=== PATIENT | male | born 1965 | race Caucasian/White ===

== ENCOUNTER 2017-01-10 06:07 | Inpatient (IN) ==
[2017-01-10] MEDS ORDERED: *HR* HYDROmorphone (PF) 1 MG/ML SYRINGE IVP ONE ×3 (06:24→10:11)
--- NOTE | 2017-01-10 06:27 | Emergency Department Note ---
Disposition Clinical Impression: Abdominal pain Qualifiers: Abdominal location: unspecified location Qualified Code(s): R10.9 - Unspecified abdominal pain Crohn disease Qualifiers: Gastrointestinal tract location: small intestine Digestive disease complication type: with fistula Qualified Code(s): K50.013 - Crohn's disease of small intestine with fistula Disposition: Admitted As Inpatient Condition: Good Time of Disposition: 11:17 Abdominal Pain HPI - General Chief Complaint: ED Abdominal Pain Stated Complaint: Crohns flare Time Seen by Provider: 01/10/17 06:12 Source: patient Nursing Notes Reviewed: Yes Vital Signs Reviewed: Yes - History of Present Illness HPI Narrative: Patient is a 51-year-old white male nonsmoker c/o abdominal pain 3 days. He compares it to his previous episodes of Crohn's disease which he has had for 16 years. He is followed by Dr. Deshpande. He indicates the location of the pain, by passing his hand over his right and left lower quadrant and his periumbilical area. He describes it as crampy, and gradually worsening. Nothing has made his his pain better. He states the pain does not migrate or radiate. His last bowel movement was yesterday which she describes as being normal. He has been able to food, but does mention he has not been eating much. He mentions he is taking Humira and azathioprine. He denies any nausea, vomiting, bloody stools, chest pain, shortness of breath, fevers, chills, weight loss. Pt Subjective Complaint: abdominal pain Onset (ago): day(s) (3) Consistency: Worsening Location: diffuse (Lower quadrant) Pain Scale: 9 Quality: cramping Migration to: no migration Improves with: nothing Worsens with: nothing Context: history of similar episodes (h/o crohns disease) Associated symptoms: Denies: nausea, vomiting, diarrhea, fever, chills, constipation, dysuria, hematemesis, hematuria, anorexia - Related Data Home Medications Medication Instructions Recorded Confirmed Adalimumab [Humira] 40 mg SQ Q2W 07/13/16 10/28/16 Azathioprine [Imuran] 150 mg PO DAILY 07/13/16 10/28/16 L. Acidophilus/Pectin, [place] 1 cap PO DAILY 01/10/17 01/10/17 [Acidophilus Probiotic Capsule] Multivitamin [Multi-Day Vitamins] 1 tab PO DAILY 01/10/17 01/10/17 Allergies Allergy/AdvReac Type Severity Reaction Status Date / Time infliximab [From Remicade] AdvReac Shakiness Verified 10/28/16 10:05 All systems ED: reviewed and negative except as stated. Constitutional: Denies: fever, chills ENT ED: Denies: ear pain Cardiovascular: Denies: chest pain Respiratory: Denies: dyspnea Gastrointestinal: Reports: as per HPI. Denies: diarrhea, constipation Genitourinary: Denies: dysuria Musculoskeletal: Denies: back pain Integumentary: Denies: rash Neurological: Denies: weakness Hematological/Lymphatic: Denies: easy bleeding Abdominal Pain PMH - Past Medical History Medical history: Reports: other (Crohns Disease) Male Surgical History: Reports: herniorrhaphy Psychiatric history: Reports: no psych history - Social History Smoking status: Never smoker Alcohol use: Reports: rarely Drug use: Reports: none Physical Exam - General Limitations: no limitations General appearance: alert, in no apparent distress - Head Head exam: normocephalic - Eye Eye exam: Present: EOMI. Absent: conjunctival injection - ENT ENT exam: mucous membranes moist - Neck Neck exam: Present: full ROM - Chest Chest inspection: Present: symmetric chest wall rise - Respiratory Respiratory exam: Present: normal lung sounds bilaterally. Absent: respiratory distress - Cardiovascular Cardiovascular exam: Present: regular rate, normal rhythm - Abdominal Exam Abdominal exam: Present: soft, tenderness, normal bowel sounds. Absent: distention, guarding, rebound - Extremities Exam Extremities exam: Present: normal inspection, full ROM, normal capillary refill - Back Exam Back exam: Present: full ROM - Neurological Exam Neurological exam: Present: alert, oriented X3 - Psychiatric Psychiatric exam: Present: normal affect, normal mood - Skin Skin exam: Present: warm, dry, intact, normal color. Absent: rash Course Course Narrative: Patient is a 51-year-old white male nonsmoker with known 16year h/o of crohns' disease who ambulates to exam room from home with complaints of abdominal pain 3 days. He is followed by Dr. Deshpande. He has a h/o of fistulas, denies any h/o of surgeries for his crohns. He is taking Humira and azathioprine. No recent steroid or abx use. Had an 8 day hospitalization for his crohns approx 4 years ago. Past surgical history includes an umbilical hernia repair, and some knee surgeries. No gross focal neurological deficits. Workup initiated. Analgesics ordered. Fluids ordered. - Reevaluation(s) Reevaluation #1: Patient received pain medication, and fluids running. He states his pain has improved after Dilaudid. Discussed patient with Dr. Laboy, who agreed for CT scan of abdomen and pelvis with IV and oral contrast. He also recommended sedimentation rate, CRP, stool culture, C. difficile. Plan will be to contact Dr. Deshpande after workup. Time: 07:10 Reevaluation #2: Pt pain is returning, and is now accompanied with N/V. Will order dilaudid and zofran. Vitals stable. GI labs unremarkable, SED rate 28. CT still pending. Time: 08:11 Reevaluation #3: CT report still pending. Pt pain/nausea returning. Meds ordered. Time: 10:12 Additional Reevaluation(s): Ct shows inflammatory changes consistent with patient's Crohn disease at distal ileum extending into the ileocecal valve. Mild fluid-filled distention of loops proximal and wall thickening, possible underlying ileus. Fistula tracts suspected, no abscess formation. Vital stable. Pain and nausea controlled with IV meds. @10:58 Pt discussed with and accepted by hospitalist Dr. Fisher. - Consultations Consultation #1: On-call trades helper was paged, and I discussed patient with Dr. Deshpande, who advised for admission to hospitalist and he also advised Solu-Medrol 125. Time: 10:46 Vital Signs Temperature 97.7 F 01/10/17 06:10 Pulse Rate 92 01/10/17 06:10 Respiratory Rate 16 01/10/17 06:10 Blood Pressure 135/88 01/10/17 06:10 O2 Sat by Pulse Oximetry 96 01/10/17 06:10 Temperature 97.7 F 01/10/17 06:10 Pulse Rate 86 01/10/17 10:22 Respiratory Rate 16 01/10/17 10:22 Blood Pressure 139/89 01/10/17 10:22 O2 Sat by Pulse Oximetry 94 01/10/17 10:22 Oxygen Delivery Oxygen Delivery Nasal Cannula Abdominal Pain - MDM Narrative Medical decision making narrative: Abdomen/Pelvis CT 01/10/17 09:30 IMPRESSION: Inflammatory changes involving the mid to distal ileum extending to the ileocecal valve compatible with inflammatory changes from patient's known Crohn's disease. Several fistulous tracts are again suspected in the lower abdomen, pelvis involving enteric-enteric and enteric colonic pathways. Mild fluid-filled distention of loops of small bowel noted proximal to the wall thickening favored to represent underlying ileus. Incidental note of hepatic steatosis. No evidence of abscess formation at this time. D/ / 01/10/2017 10:49:47 Valente Danielle MD / bridger Interpreting Provider: Valente Danielle MD All Lab Results (24 Hours) 01/10/17 01/10/17 01/10/17 Range/Units 06:33 06:55 06:55 WBC 8.2 (4.3-11.1) K/mcL RBC 5.04 (4.19-5.50) M/mcL Hgb 14.7 (12.9-16.9) g/dL Hct 44.4 (37.5-50.1) % MCV 88.1 (83.0-100.0) fL MCH 29.2 (28.0-33.3) pg MCHC 33.1 (31.6-35.5) g/dL RDW 13.4 (11.5-14.5) % Plt Count 191 (140-400) K/mcL MPV 10.8 (9.4-12.4) fL Immature Gran % 0.5 (0-4) % Seg Neutrophils % 87.8 % Lymphocytes % 5.2 % Monocytes % 6.1 % Eosinophils % 0.2 % Basophils % 0.2 % Neutrophils # 7.2 (1.6-8.9) K/mcL Lymphocytes # 0.4 L (0.6-4.6) K/mcL Monocytes # 0.5 (0.0-1.3) K/mcL Eosinophils # 0.0 (0.0-0.6) K/mcL Basophils # 0.0 (0.0-0.2) K/mcL ESR (0-10) mm/hr Sodium 138 (136-145) mEq/L Potassium 4.1 (3.5-4.5) mEq/L Chloride 110 H (98-109) mEq/L Carbon Dioxide 19 (19-29) mEq/L BUN 16 (8-26) mg/dL Creatinine 0.91 (0.72-1.25) mg/dL Est GFR ( Amer) > 60 (> 60) Est GFR (Non-Af Amer) > 60 (> 60) BUN/Creatinine Ratio 18 (6-26) Glucose 114 H (70-99) mg/dL Calculated Osmolality 288 (280-300) Calcium 9.4 (8.6-10.8) mg/dL Total Bilirubin 0.7 (0.2-1.2) mg/dL Direct Bilirubin 0.3 (0.0-0.5) mg/dL Indirect Bilirubin 0.4 (0.0-1.2) mg/dL AST 18 (5-34) Units/L ALT 14 (0-55) Units/L Alkaline Phosphatase 92 (38-126) Units/L C-Reactive Protein 16 H (Less than 5) mg/L Serum Total Protein 7.3 (6.0-8.3) g/dL Albumin 3.6 (3.5-5.0) g/dL Globulin 3.7 H (2.4-3.5) g/dL Albumin/Globulin Ratio 1.0 L (1.1-2.2) Lipase 32 (8-78) Units/L Specimen Rejected Labelling 01/10/17 Range/Units 06:55 WBC (4.3-11.1) K/mcL RBC (4.19-5.50) M/mcL Hgb (12.9-16.9) g/dL Hct (37.5-50.1) % MCV (83.0-100.0) fL MCH (28.0-33.3) pg MCHC (31.6-35.5) g/dL RDW (11.5-14.5) % Plt Count (140-400) K/mcL MPV (9.4-12.4) fL Immature Gran % (0-4) % Seg Neutrophils % % Lymphocytes % % Monocytes % % Eosinophils % % Basophils % % Neutrophils # (1.6-8.9) K/mcL Lymphocytes # (0.6-4.6) K/mcL Monocytes # (0.0-1.3) K/mcL Eosinophils # (0.0-0.6) K/mcL Basophils # (0.0-0.2) K/mcL ESR 28 H (0-10) mm/hr Sodium (136-145) mEq/L Potassium (3.5-4.5) mEq/L Chloride (98-109) mEq/L Carbon Dioxide (19-29) mEq/L BUN (8-26) mg/dL Creatinine (0.72-1.25) mg/dL Est GFR ( Amer) (> 60) Est GFR (Non-Af Amer) (> 60) BUN/Creatinine Ratio (6-26) Glucose (70-99) mg/dL Calculated Osmolality (280-300) Calcium (8.6-10.8) mg/dL Total Bilirubin (0.2-1.2) mg/dL Direct Bilirubin (0.0-0.5) mg/dL Indirect Bilirubin (0.0-1.2) mg/dL AST (5-34) Units/L ALT (0-55) Units/L Alkaline Phosphatase (38-126) Units/L C-Reactive Protein (Less than 5) mg/L Serum Total Protein (6.0-8.3) g/dL Albumin (3.5-5.0) g/dL Globulin (2.4-3.5) g/dL Albumin/Globulin Ratio (1.1-2.2) Lipase (8-78) Units/L Specimen Rejected - Medical Records Medical records reviewed: Yes I reviewed the patient's medical records. - Lab Data Lab results reviewed: Yes I reviewed the patient's lab results. Result diagrams: 01/10/17 06:55 01/10/17 06:55 Lab Results 01/10/17 01/10/17 01/10/17 Range/Units 06:33 06:55 06:55 WBC 8.2 (4.3-11.1) K/mcL RBC 5.04 (4.19-5.50) M/mcL Hgb 14.7 (12.9-16.9) g/dL Hct 44.4 (37.5-50.1) % MCV 88.1 (83.0-100.0) fL MCH 29.2 (28.0-33.3) pg MCHC 33.1 (31.6-35.5) g/dL RDW 13.4 (11.5-14.5) % Plt Count 191 (140-400) K/mcL MPV 10.8 (9.4-12.4) fL Immature Gran % 0.5 (0-4) % Seg Neutrophils % 87.8 % Lymphocytes % 5.2 % Monocytes % 6.1 % Eosinophils % 0.2 % Basophils % 0.2 % Neutrophils # 7.2 (1.6-8.9) K/mcL Lymphocytes # 0.4 L (0.6-4.6) K/mcL Monocytes # 0.5 (0.0-1.3) K/mcL Eosinophils # 0.0 (0.0-0.6) K/mcL Basophils # 0.0 (0.0-0.2) K/mcL ESR (0-10) mm/hr Sodium 138 (136-145) mEq/L Potassium 4.1 (3.5-4.5) mEq/L Chloride 110 H (98-109) mEq/L Carbon Dioxide 19 (19-29) mEq/L BUN 16 (8-26) mg/dL Creatinine 0.91 (0.72-1.25) mg/dL Est GFR ( Amer) > 60 (> 60) Est GFR (Non-Af Amer) > 60 (> 60) BUN/Creatinine Ratio 18 (6-26) Glucose 114 H (70-99) mg/dL Calculated Osmolality 288 (280-300) Calcium 9.4 (8.6-10.8) mg/dL Total Bilirubin 0.7 (0.2-1.2) mg/dL Direct Bilirubin 0.3 (0.0-0.5) mg/dL Indirect Bilirubin 0.4 (0.0-1.2) mg/dL AST 18 (5-34) Units/L ALT 14 (0-55) Units/L Alkaline Phosphatase 92 (38-126) Units/L C-Reactive Protein 16 H (Less than 5) mg/L Serum Total Protein 7.3 (6.0-8.3) g/dL Albumin 3.6 (3.5-5.0) g/dL Globulin 3.7 H (2.4-3.5) g/dL Albumin/Globulin Ratio 1.0 L (1.1-2.2) Lipase 32 (8-78) Units/L Specimen Rejected Labelling 01/10/17 Range/Units 06:55 WBC (4.3-11.1) K/mcL RBC (4.19-5.50) M/mcL Hgb (12.9-16.9) g/dL Hct (37.5-50.1) % MCV (83.0-100.0) fL MCH (28.0-33.3) pg MCHC (31.6-35.5) g/dL RDW (11.5-14.5) % Plt Count (140-400) K/mcL MPV (9.4-12.4) fL Immature Gran % (0-4) % Seg Neutrophils % % Lymphocytes % % Monocytes % % Eosinophils % % Basophils % % Neutrophils # (1.6-8.9) K/mcL Lymphocytes # (0.6-4.6) K/mcL Monocytes # (0.0-1.3) K/mcL Eosinophils # (0.0-0.6) K/mcL Basophils # (0.0-0.2) K/mcL ESR 28 H (0-10) mm/hr Sodium (136-145) mEq/L Potassium (3.5-4.5) mEq/L Chloride (98-109) mEq/L Carbon Dioxide (19-29) mEq/L BUN (8-26) mg/dL Creatinine (0.72-1.25) mg/dL Est GFR ( Amer) (> 60) Est GFR (Non-Af Amer) (> 60) BUN/Creatinine Ratio (6-26) Glucose (70-99) mg/dL Calculated Osmolality (280-300) Calcium (8.6-10.8) mg/dL Total Bilirubin (0.2-1.2) mg/dL Direct Bilirubin (0.0-0.5) mg/dL Indirect Bilirubin (0.0-1.2) mg/dL AST (5-34) Units/L ALT (0-55) Units/L Alkaline Phosphatase (38-126) Units/L C-Reactive Protein (Less than 5) mg/L Serum Total Protein (6.0-8.3) g/dL Albumin (3.5-5.0) g/dL Globulin (2.4-3.5) g/dL Albumin/Globulin Ratio (1.1-2.2) Lipase (8-78) Units/L Specimen Rejected Attestation Statement - Attestation Attestation: For this encounter, I have reviewed the BUNCHER MACHINE or PA documentation, treatment plan, and medical decision making; and I have had face to face time with this patient. He 51-year-old male with a history of Crohn's disease comes in with increasing pain. States his symptoms are similar to the previous flares of Crohn 's disease. Patient is followed by GI here. Abdominal examination is mildly diffusely tender without guarding or rebound. We will obtain CT scan lab work and consultation with GI disposition will be based on findings.
[2017-01-10] MEDS ORDERED: 0.9 % Sodium Chloride 1,000 ML IVC ONE (06:36)
[2017-01-10 07:08] LABS: Basophils % 0.2 %; Eosinophils % 0.2 %; Hematocrit 44.4 % (37.5-50.1); Hemoglobin 14.7 g/dL (12.9-16.9); Immature Granulocytes % 0.5 % (0-4); Lymphocytes # 0.4 K/mcL (0.6-4.6); Lymphocytes % 5.2 %; Mean Corpuscular HGB Conc 33.1 g/dL (31.6-35.5); Mean Corpuscular Hemoglobin 29.2 pg (28.0-33.3); Mean Corpuscular Volume 88.1 fL (83.0-100.0); Mean Platelet Volume 10.8 fL (9.4-12.4); Monocytes # 0.5 K/mcL (0.0-1.3); Monocytes % 6.1 %; Neutrophils # 7.2 K/mcL (1.6-8.9); Platelet Count 191 K/mcL (140-400); Red Blood Count 5.04 M/mcL (4.19-5.50); Red Cell Distribution Width 13.4 % (11.5-14.5); Segmented Neutrophils % 87.8 %
[2017-01-10 07:28] LABS: Alanine Aminotransferase 14 Units/L (0-55); Albumin 3.6 g/dL (3.5-5.0); Alkaline Phosphatase 92 Units/L (38-126); Aspartate Amino Transferase 18 Units/L (5-34); BUN/Creatinine Ratio 18 (6-26); Bilirubin,Direct 0.3 mg/dL (0.0-0.5); Bilirubin,Indirect 0.4 mg/dL (0.0-1.2); Bilirubin,Total 0.7 mg/dL (0.2-1.2); Blood Urea Nitrogen 16 mg/dL (8-26); Calcium 9.4 mg/dL (8.6-10.8); Carbon Dioxide 19 mEq/L (19-29); Chloride 110 mEq/L (98-109); Globulin 3.7 g/dL (2.4-3.5); Glucose 114 mg/dL (70-99); Lipase 32 Units/L (8-78); Osmolality,Calculated 288 (280-300); Potassium 4.1 mEq/L (3.5-4.5); Sodium 138 mEq/L (136-145); Total Protein 7.3 g/dL (6.0-8.3); eGFR For African Americans > 60 (> 60); eGFR For Non-African Americans > 60 (> 60)
[2017-01-10] MEDS ORDERED: Ondansetron 4 MG/2 ML VIAL IVP ONE ×2 (08:07→10:11)
[2017-01-10] MEDS ORDERED: methylPREDNISolone 125 MG/2 ML VIAL IVP ONE (10:46)
[2017-01-10 11:00] LABS: C-Reactive Protein 16 mg/L (Less than 5)
[2017-01-10] MEDS ORDERED: Naloxone 0.4 MG/ML INJ IVP PRN (12:02)
[2017-01-10] MEDS ORDERED: Ondansetron 4 MG/2 ML VIAL IVP PRN (12:02)
[2017-01-10] MEDS ORDERED: Acetaminophen 325 MG TABLET PO PRN (12:02)
[2017-01-10] MEDS ORDERED: *HR* Morphine 2 MG/ML SYRINGE IVP PRN (12:02)
[2017-01-10] MEDS ORDERED: Ketorolac 30 MG/ML VIAL IVP PRN (12:02)
[2017-01-10] MEDS: *HR* Promethazine 25 MG/ML VIAL IVP PRN ×2 (12:17→22:03)
[2017-01-10] MEDS: 0.9 % Sodium Chloride 1,000 ML IVC SCH ×2 (12:35→22:17)
--- NOTE | 2017-01-10 12:37 | Internal Med History&Physical ---
Date of Encounter: 01/10/17 Time of Encounter: 12:15 Assessment and Plan (1) Acute Crohn's disease Current visit: Yes Status: Acute Patient with acute flareup of Crohn's disease. Discussed with GI. Will admit inpatient. Treat with IV fluids. Keep nothing by mouth. IV steroids. Symptomatic management for nausea and vomiting and pain. High risk for complications. Continue azathioprine Qualifiers: Digestive disease complication type: other complication Qualified Code(s): K50.918 - Crohn's disease, unspecified, with other complication Internal Medicine - H&P: HPI Chief complaint: Abdominal pain nausea and vomiting Admitted From: Emergency Dept Plans for Post Hospital Care: Home History of present illness: Mr. Dias is a 51 year old male patient with history of Crohn's disease who presented to the ER with complaints of abdominal pain along with nausea and vomiting. Symptoms began about 3 days back with abdominal pain that is cramping in nature. Patient has chronic cramping abdominal pain that usually spontaneously subsides. However this episode continued to get worse and so he came to the ER. Denies any fever chills or night sweats. Patient takes Humira and azathioprine for his Crohn's disease. He has not had any recent flareup. Since being diagnosed about 16 years back he has had only a couple of flareups prior to this current episode. Denies any melena or hematochezia. No dizziness or lightheadedness. No palpitations. Past Med Surg Social Fam HX - Past Medical History Attestation: Yes The following information was validated with the patient. Source: patient Medical history: other (Crohn's disease) Psychiatric history: no psych history - Social History Smoking Status: Never smoker Smokeless Tobacco Status: No Alcohol use: rarely Drug use: none - Additional Family History Additional family history: Reviewed and found to be noncontributory at this time Internal Medicine - H&P: Meds Adalimumab [Humira] 40 mg SQ Q2W 07/13/16 [History] Azathioprine [Imuran] 150 mg PO DAILY 07/13/16 [History] L. Acidophilus/Pectin, [place] [Acidophilus Probiotic Capsule] 1 cap PO DAILY [History] Multivitamin [Multi-Day Vitamins] 1 tab PO DAILY 01/10/17 [History] Allergies infliximab [From Remicade] Adverse Reaction (Verified 10/28/16 10:05) Shakiness All Systems PM: A 10-system review of systems was performed and is negative for pertinent findings except as documented above in the HPI. - Constitutional Constitutional: malaise, no chills, no fever(s), no night sweats - EENT Eyes: no change in vision, no discharge, no pain, no photophobia Ears: no ear discharge, no ear pain, no tinnitus Nose, mouth and throat: no dysphagia, no nasal discharge, no neck pain, no sore throat - Cardiovascular Cardiovascular ROS IM: no chest pain, no diaphoresis, no dyspnea, no lightheadedness, no palpitations, no syncope - Respiratory Respiratory: no cough, no dyspnea, no wheezing, no excessive phlegm production - Gastrointestinal Gastrointestinal: abdominal pain, cramping, nausea, vomiting, no diarrhea, no hematemesis, no hematochezia, no melena - Musculoskeletal Musculoskeletal ROS IM: no numbness, no tingling - Integumentary Integumentary IM: no rash, no unusual bruising - Neurological Neurological ROS: no confusion, no convulsions, no focal weakness, no numbness, no tingling, no tremor(s) - Hematologic/Lymphatic Hematologic/Lymphatic: no easy bruising - Constitutional Vitals: Temp Pulse Resp BP Pulse Ox 97.6 F 77 16 129/89 97 01/10/17 12:04 01/10/17 12:04 01/10/17 12:04 01/10/17 12:04 01/10/17 12:04 General appearance: Present: cooperative, A&O X 3, answers questions appropriately Exam: Moderate distress - Neck Neck exam general surgery: Present: supple, trachea midline. Absent: lymphadenopathy - Respiratory Respiratory exam: Present: CTAB. Absent: accessory muscle use, rales, rhonchi, wheezes - Cardiovascular Cardiovascular exam: Present: RRR, +S1, +S2. Absent: diastolic murmur, gallop, rubs, systolic murmur - GI/Abdominal GI/Abdominal exam: Present: diminished bowel sounds, soft, tenderness ( Generalized), no peritoneal signs. Absent: distended - Extremities Exam Extremities exam: Present: warm, radial pulses palpable and symetrical. Absent : calf tenderness, cyanotic, pedal edema - Neurological Exam Neurological exam: Present: CN II-XII intact, oriented X3, no focal deficits. Absent: facial droop, speech deficit Internal Med - H&P Results - Labs CBC & Chem 7: 01/10/17 06:55 01/10/17 06:55 - Impressions Impressions Abdomen/Pelvis CT 01/10/17 09:30 IMPRESSION: Inflammatory changes involving the mid to distal ileum extending to the ileocecal valve compatible with inflammatory changes from patient's known Crohn's disease. Several fistulous tracts are again suspected in the lower abdomen, pelvis involving enteric-enteric and enteric colonic pathways. Mild fluid-filled distention of loops of small bowel noted proximal to the wall thickening favored to represent underlying ileus. Incidental note of hepatic steatosis. No evidence of abscess formation at this time. D/ / 01/10/2017 10:49:47 Valente Danielle MD / bridger Interpreting Provider: Valente Danielle MD
[2017-01-10 13:02] LABS: Bilirubin,Urine Negative (Negative); Blood,Urine Negative (Negative); Clarity,Urine Clear (Clear); Color,Urine Yellow (Yellow); Glucose,Urine (UA) Normal (Normal); Ketones,Urine 15 mg/dL (Negative); Leukocyte Esterase,Urine Negative (Negative); Nitrite,Urine Negative (Negative); Protein,Urine Negative (Neg-Trace); Specific Gravity,Urine > 1.030 (1.010-1.025); Urobilinogen,Urine Normal (Normal)
[2017-01-10] MEDS ORDERED: methylPREDNISolone 125 MG/2 ML VIAL IVP SCH (16:00)
[2017-01-10] MEDS: *HR* Heparin 5,000 UNIT/ML VIAL SQ SCH (17:54)
[2017-01-11] MEDS: *HR* Heparin 5,000 UNIT/ML VIAL SQ SCH ×2 (06:16→17:12)
[2017-01-11 06:18] LABS: Basophils % 0.1 %; Hematocrit 38.9 % (37.5-50.1); Immature Granulocytes % 0.6 % (0-4); Lymphocytes # 0.3 K/mcL (0.6-4.6); Lymphocytes % 3.1 %; Mean Corpuscular HGB Conc 33.2 g/dL (31.6-35.5); Mean Corpuscular Hemoglobin 29.7 pg (28.0-33.3); Mean Corpuscular Volume 89.4 fL (83.0-100.0); Mean Platelet Volume 11.5 fL (9.4-12.4); Monocytes # 0.7 K/mcL (0.0-1.3); Monocytes % 7.7 %; Neutrophils # 7.8 K/mcL (1.6-8.9); Platelet Count 183 K/mcL (140-400); Red Blood Count 4.35 M/mcL (4.19-5.50); Red Cell Distribution Width 13.4 % (11.5-14.5); Segmented Neutrophils % 88.5 %
[2017-01-11 06:23] LABS: Hemoglobin 12.9 g/dL (12.9-16.9)
[2017-01-11 06:32] LABS: BUN/Creatinine Ratio 21 (6-26); Blood Urea Nitrogen 18 mg/dL (8-26); Calcium 8.2 mg/dL (8.6-10.8); Carbon Dioxide 22 mEq/L (19-29); Chloride 107 mEq/L (98-109); Glucose 110 mg/dL (70-99); Osmolality,Calculated 289 (280-300); Potassium 3.7 mEq/L (3.5-4.5); Sodium 138 mEq/L (136-145); eGFR For African Americans > 60 (> 60); eGFR For Non-African Americans > 60 (> 60)
[2017-01-11] MEDS: 0.9 % Sodium Chloride 1,000 ML IVC SCH (08:27)
[2017-01-11] MEDS: methylPREDNISolone 125 MG/2 ML VIAL IVP SCH (08:28)
[2017-01-11] MEDS ORDERED: ACIDOPHILUS PO SCH (09:00)
[2017-01-11] MEDS ORDERED: PECTIN CITRUS PO SCH (09:00)
--- NOTE | 2017-01-11 11:52 | Gastroenterology Consult Note ---
<Eligio Bear - Last Filed: 01/11/17 11:49> Date of Encounter: 01/11/17 Time of Encounter: 11:05 - Assessment and plan (1) Crohn disease Current Visit: Yes Status: Acute Assessment and plan: Continue Solu-Medrol 60 mg daily. Plan to check Prometheus Anser ADA and Imuran metabolites as outpatient to monitor treatment, and determine if we need to modify treatment due to rejection. Qualifiers: Gastrointestinal tract location: small intestine Digestive disease complication type: unspecified complication Qualified Code(s): K50.019 - Crohn 's disease of small intestine with unspecified complications (2) Abdominal pain Current Visit: Yes Status: Acute Assessment and plan: Secondary to Crohn's disease. Qualifiers: Abdominal location: unspecified location Qualified Code(s): R10.9 - Unspecified abdominal pain (3) Fatty liver Current Visit: Yes Status: Acute Assessment and plan: Noted on CT. Complete liver workup. - Time Spent With Patient Total time spent is greater than 50% in coordination of care (as documented) at patient's floor/unit and/or counseling patient: GI History of Present Illness - Data of Consult Patient: known to practice within the last 3 years Consult date: 01/11/17 Requesting Physician: Marly Walker MD - Consult Narrative Reason for consult: Crohn's flare History of present illness: Mr. Dias is a 51 year old male with PMHx of Crohn's Disease presented to the ED with c/o abdominal pain, nausea, and vomiting that started 3 days prior to admission. Patient has chronic cramping abdominal pain that usually spontaneously subsides. He currently takes Humira and Imuran for his Crohn's disease. CT A/P shows inflammatory changes consistent with patient's Crohn disease at distal ileum extending into the ileocecal valve. Mild fluid-filled distention of loops proximal and wall thickening, possible underlying ileus. Fistula tracts suspected, no abscess formation. Procedures: Colonoscopy 01/12/2014 Dr. Deshpande: Inflammation secondary to Crohn's disease, ???rectosigmoid fistula NSAIDs: None Anticoagulation: None Past Med Surg Social Fam HX - Past Medical History Medical history: other (Crohn's disease) Psychiatric history: no psych history - Social History Smoking Status: Never smoker Smokeless Tobacco Status: No Alcohol use: rarely Drug use: none - Gastrointestinal Gastrointestinal: Present: as per HPI - Constitutional Constitutional: as per HPI - EENT Eyes: as per HPI Ears: Present: as per HPI Nose, mouth and throat: Present: as per HPI - Cardiovascular Cardiovascular ROS: Present: as per HPI - Respiratory Respiratory IM: Present: as per HPI - Genitourinary Genitourinary: Absent: change in color, Urinary frequency - Neurological ROS Neurological GI: Present: as per HPI - Hematologic/Lymphatic Hematologic/Lymphatic pediatric: Present: as per HPI - Musculoskeletal Musculoskeletal ROS GI: Present: as per HPI - Integumentary Integumentary GI: Present: as per HPI - Psychiatric ROS Psychiatric GI: Present: as per HPI - Endocrine Endocrine IM: Present: as per HPI - Constitutional Vitals: Temp Pulse Resp BP Pulse Ox 98.3 F 86 16 122/73 96 01/11/17 07:19 01/11/17 07:19 01/11/17 07:19 01/11/17 07:19 01/11/17 08:42 General appearance: Present: cooperative, A&O X 3, no acute distress, answers questions appropriately - Head Head exam: Present: atraumatic, normocephalic - Eye Eye exam: Present: normal appearance, sclera anicteric - ENT ENT exam: Present: mucous membranes dry - Neck Neck exam general surgery: Present: normal inspection, trachea midline - Respiratory Respiratory exam: Present: CTAB. Absent: rales, rhonchi - Cardiovascular Cardiovascular exam: Present: RRR, +S1, +S2 - GI/Abdominal GI/Abdominal exam: Present: soft, tenderness (mild), no peritoneal signs. Absent: distended, firm, guarding - Rectal Rectal exam: Present: deferred - Extremities Exam Extremities exam: Present: warm - Neurological Exam Neurological exam: Present: no focal deficits - Psychiatric Psychiatric exam: Present: normal affect, normal mood - Skin Skin exam: Present: dry, intact, normal color, warm Results - Labs CBC & Chem 7: 01/11/17 04:37 01/11/17 04:37 Labs: Last Result ESR 28 mm/hr (0-10) H 01/10/17 06:55 Calcium 8.2 mg/dL (8.6-10.8) L 01/11/17 04:37 C-Reactive Protein 16 mg/L (Less than 5) H 01/10/17 06:55 Entire Visit Hgb 12.9 g/dL (12.9-16.9) D 01/11/17 04:37 Hct 38.9 % (37.5-50.1) 01/11/17 04:37 Total Bilirubin 0.7 mg/dL (0.2-1.2) 01/10/17 06:55 AST 18 Units/L (5-34) 01/10/17 06:55 ALT 14 Units/L (0-55) 01/10/17 06:55 Lipase 32 Units/L (8-78) 01/10/17 06:55 Consult Discharge Plan - Plan Referrals: Dilan Claudio MD [Primary Care Provider] - 01/22/17 3:30 pm () <Dominique Deshpande - Last Filed: 01/11/17 18:02> Date of Encounter: 01/11/17 Time of Encounter: 18:00 - Time Spent With Patient Total time spent is greater than 50% in coordination of care (as documented) at patient's floor/unit and/or counseling patient: GI History of Present Illness - Data of Consult Requesting Physician: Marly Walker MD - Consult Narrative History of present illness: Mr. Dias is a 51 year old male - Constitutional Vitals: Temp Pulse Resp BP Pulse Ox 98.4 F 88 16 130/77 95 01/11/17 15:36 01/11/17 15:36 01/11/17 15:36 01/11/17 15:36 01/11/17 15:36 Results - Labs CBC & Chem 7: 01/11/17 04:37 01/11/17 04:37 Labs: Last Result ESR 28 mm/hr (0-10) H 01/10/17 06:55 Calcium 8.2 mg/dL (8.6-10.8) L 01/11/17 04:37 Ferritin 337 ng/ml (22-275) H 01/11/17 12:20 C-Reactive Protein 16 mg/L (Less than 5) H 01/10/17 06:55 Entire Visit Hgb 12.9 g/dL (12.9-16.9) D 01/11/17 04:37 Hct 38.9 % (37.5-50.1) 01/11/17 04:37 PT 12.5 Seconds (9.4-12.1) H 01/11/17 12:20 Total Bilirubin 0.7 mg/dL (0.2-1.2) 01/10/17 06:55 Ferritin 337 ng/ml (22-275) H 01/11/17 12:20 AST 18 Units/L (5-34) 01/10/17 06:55 ALT 14 Units/L (0-55) 01/10/17 06:55 Lipase 32 Units/L (8-78) 01/10/17 06:55 - ABG ABG results: PT/INR, D-dimer PT 12.5 Seconds (9.4-12.1) H 01/11/17 12:20 - Impressions Impressions Liver Ultrasound 01/11/17 14:00 IMPRESSION: Hepatic steatosis. Otherwise, unremarkable right upper quadrant ultrasound. D/ / Piotr Hooker MD / Piotr Hooker MD Interpreting Provider: Piotr Hooker MD - Attending Attestation I examined this patient and my medical decision-making was reviewed with the REGISTERED MIDWIFE/PA/Advanced Practice Nurse/Resident Physician. I agree with the documented findings, disposition and treatment plan as described except to the extent set forth below. Patient with Crohn disease. Had allergic reaction to Remicade in the past. Has been on Humira for the last 2-3 years now is having worsening of his Crohn disease was fistulous tract between the bowel loops. Recommendation is to start the patient on Entyvio as an outpatient meanwhile continue IV steroids
[2017-01-11] MEDS: Lactobacillus 1 EACH CAP.SPRINK PO SCH ×2 (12:00→21:09)
[2017-01-11 12:38] LABS: INR 1.2; Prothrombin Time 12.5 Seconds (9.4-12.1)
--- NOTE | 2017-01-11 17:46 | Internal Med Progress Note ---
Date of Encounter: 01/11/17 Time of Encounter: 10:00 - Assessment and plan (1) DVT prophylaxis Current Visit: Yes Status: Acute Assessment and plan: Heparin subcutaneously (2) Abdominal pain Current Visit: Yes Status: Acute Assessment and plan: Most likely Crohn dis flare. GI Consult appreciated. Cont steroid and Imuran. Improved after treatment. Need to rule out C. difficile infection if pt still has diarrhea. Qualifiers: Abdominal location: unspecified location Qualified Code(s): R10.9 - Unspecified abdominal pain (3) Acute Crohn's disease Current Visit: Yes Status: Acute Assessment and plan: As above Qualifiers: Digestive disease complication type: other complication Qualified Code(s): K50.918 - Crohn's disease, unspecified, with other complication - Time Spent With Patient 25 - 35 minutes - Subjective Interval history: Patient is a 51-year-old male with a history of Crohn disease admitted for abdominal pain with nausea vomiting and diarrhea. Patient was seen and examined. Abdominal pain has improved. No further nausea or vomiting. No bowel movement after moving to floor, stool study is pending. Vitals are stable. GI consult appreciated, continue IV steroids, Imuran. Continue supportive and symptomatic treatment - Constitutional Vitals: Temp Pulse Resp BP Pulse Ox 98.4 F 88 16 130/77 95 01/11/17 15:36 01/11/17 15:36 01/11/17 15:36 01/11/17 15:36 01/11/17 15:36 General appearance: Present: cooperative, A&O X 3, answers questions appropriately - Head Head exam: Present: atraumatic, normocephalic - Eye Eye exam: Present: PERRL, conjuntiva pink, sclera anicteric Pupils: Present: PERRL - Neck Neck exam general surgery: Present: supple, trachea midline. Absent: lymphadenopathy - Respiratory Respiratory exam: Present: CTAB. Absent: accessory muscle use, rales, rhonchi, wheezes - Cardiovascular Cardiovascular exam: Present: RRR, +S1, +S2. Absent: diastolic murmur, gallop, rubs, systolic murmur - GI/Abdominal GI/Abdominal exam: Present: normal bowel sounds, soft, tenderness (Mild tenderness without rebound or guarding), no peritoneal signs. Absent: distended - Extremities Exam Extremities exam: Present: warm, radial pulses palpable and symetrical. Absent : calf tenderness, cyanotic, pedal edema - Neurological Exam Neurological exam: Present: CN II-XII intact, oriented X3, no focal deficits. Absent: pronater drift, facial droop, speech deficit - Skin Skin exam: Present: dry, intact Internal Medicine: Result - Labs CBC & Chem 7: 01/11/17 04:37 01/11/17 04:37 Labs: Short CBC 01/11/17 Range/Units 04:37 WBC 8.9 (4.3-11.1) K/mcL Hgb 12.9 D (12.9-16.9) g/dL Hct 38.9 (37.5-50.1) % Plt Count 183 (140-400) K/mcL Neutrophils # 7.8 (1.6-8.9) K/mcL BMP 01/11/17 04:37 Sodium 138 Potassium 3.7 Chloride 107 Carbon Dioxide 22 BUN 18 Creatinine 0.86 Glucose 110 H Calcium 8.2 L - ABG Interpretation ABG results: PT/INR, D-dimer PT 12.5 Seconds (9.4-12.1) H 01/11/17 12:20 - Impressions Impressions Liver Ultrasound 01/11/17 14:00 IMPRESSION: Hepatic steatosis. Otherwise, unremarkable right upper quadrant ultrasound. D/ / Piotr Hooker MD / Piotr Hooker MD Interpreting Provider: Piotr Hooker MD Consult Discharge Plan - Plan Referrals: Dilan Claudio MD [Primary Care Provider] - 01/22/17 3:30 pm ()
[2017-01-12] MEDS: *HR* Heparin 5,000 UNIT/ML VIAL SQ SCH ×2 (05:30→17:09)
[2017-01-12 06:15] LABS: C.difficile Toxin A/B by PCR See reflex test (Not detect); Campylobacter by PCR Not detected (Not detect); Enteroaggregative E.coli(EAEC) Not detected (Not detect); Enteropathogenic E.coli(EPEC) Not detected (Not detect); Enterotoxigenic E.coli (ETEC) Not detected (Not detect); Plesiomonas shigelloides PCR Not detected (Not detect); Salmonella PCR Not detected (Not detect); Shigalike tox-prod E coli STEC Not detected (Not detect); Vibrio PCR Not detected (Not detect); Vibrio cholerae PCR Not detected (Not detect); Yersinia enterocolitica PCR Not detected (Not detect)
[2017-01-12 06:16] LABS: Adenovirus F 40/41 PCR Not detected (Not detect); Astrovirus PCR Not detected (Not detect); Cryptosporidium by PCR Not detected (Not detect); Cyclospora cayetanensis PCR Not detected (Not detect); E. coli O157 by PCR Not detected (Not detect); Entamoeba histolytica PCR Not detected (Not detect); Giardia lamblia PCR Not detected (Not detect); Norovirus GI/GII PCR Not detected (Not detect); Rotavirus A PCR Not detected (Not detect); Sapovirus PCR Not detected (Not detect); Shig/EnteroinvasiveE coli EIEC Not detected (Not detect)
[2017-01-12 07:45] LABS: BUN/Creatinine Ratio 16 (6-26); Blood Urea Nitrogen 16 mg/dL (8-26); Calcium 8.6 mg/dL (8.6-10.8); Carbon Dioxide 24 mEq/L (19-29); Chloride 108 mEq/L (98-109); Glucose 105 mg/dL (70-99); Osmolality,Calculated 290 (280-300); Potassium 3.8 mEq/L (3.5-4.5); Sodium 139 mEq/L (136-145); eGFR For African Americans > 60 (> 60); eGFR For Non-African Americans > 60 (> 60)
[2017-01-12 07:57] LABS: Basophils % 0.2 %; Eosinophils % 0.2 %; Hematocrit 39.7 % (37.5-50.1); Hemoglobin 12.7 g/dL (12.9-16.9); Immature Granulocytes % 0.6 % (0-4); Lymphocytes # 0.5 K/mcL (0.6-4.6); Lymphocytes % 7.1 %; Mean Corpuscular Hemoglobin 28.9 pg (28.0-33.3); Mean Corpuscular Volume 90.4 fL (83.0-100.0); Mean Platelet Volume 11.1 fL (9.4-12.4); Monocytes # 0.7 K/mcL (0.0-1.3); Neutrophils # 5.2 K/mcL (1.6-8.9); Platelet Count 155 K/mcL (140-400); Red Blood Count 4.39 M/mcL (4.19-5.50); Red Cell Distribution Width 13.5 % (11.5-14.5); Segmented Neutrophils % 80.9 %
[2017-01-12] MEDS: metroNIDAZOLE 500 MG TABLET PO SCH ×3 (08:11→20:20)
[2017-01-12] MEDS: *HR* Promethazine 25 MG/ML VIAL IVP PRN (08:11)
[2017-01-12] MEDS: methylPREDNISolone 125 MG/2 ML VIAL IVP SCH (08:11)
[2017-01-12] MEDS: Lactobacillus 1 EACH CAP.SPRINK PO SCH ×2 (08:11→20:20)
[2017-01-12 12:01] LABS: Hepatitis A Antibody IgM Nonreactive (Nonreactive); Hepatitis B Core IgM Nonreactive (Nonreactive); Hepatitis B Surface Antigen Nonreactive (Nonreactive); Hepatitis C Virus Antibody Nonreactive (Nonreactive)
--- NOTE | 2017-01-12 17:27 | Internal Med Progress Note ---
Date of Encounter: 01/12/17 Time of Encounter: 10:00 - Assessment and plan (1) DVT prophylaxis Current Visit: Yes Status: Acute Assessment and plan: Heparin subcutaneously (2) Abdominal pain Current Visit: Yes Status: Acute Assessment and plan: Most likely Crohn dis flare. GI Consult appreciated. Cont steroid and Imuran. Improved after treatment. Advanced to regular diet and pt tolerate well. Qualifiers: Abdominal location: unspecified location Qualified Code(s): R10.9 - Unspecified abdominal pain (3) Acute Crohn's disease Current Visit: Yes Status: Acute Assessment and plan: As above Qualifiers: Digestive disease complication type: other complication Qualified Code(s): K50.918 - Crohn's disease, unspecified, with other complication (4) C. difficile colitis Current Visit: Yes Status: Acute Assessment and plan: First time C. difficile infection. Start Flagyl by mouth, finish 14 days course - Time Spent With Patient 25 - 35 minutes - Subjective Interval history: Patient is a 51-year-old male with a history of Crohn disease admitted for abdominal pain with nausea vomiting and diarrhea. Patient was seen and examined. Abdominal pain has improved. No further nausea or vomiting. Still has loose stool, C Diff positive. Flagyl po added (first time C Diff) Vitals are stable. Pt tolerate regular diet now. All med change to po, DC IVF. - Constitutional Vitals: Temp Pulse Resp BP Pulse Ox 98.7 F 85 16 114/65 99 01/12/17 11:58 01/12/17 16:54 01/12/17 11:58 01/12/17 16:54 01/12/17 11:58 General appearance: Present: cooperative, A&O X 3, answers questions appropriately - Head Head exam: Present: atraumatic, normocephalic - Eye Eye exam: Present: PERRL, conjuntiva pink, sclera anicteric Pupils: Present: PERRL - Neck Neck exam general surgery: Present: supple, trachea midline. Absent: lymphadenopathy - Respiratory Respiratory exam: Present: CTAB. Absent: accessory muscle use, rales, rhonchi, wheezes - Cardiovascular Cardiovascular exam: Present: RRR, +S1, +S2. Absent: diastolic murmur, gallop, rubs, systolic murmur - GI/Abdominal GI/Abdominal exam: Present: normal bowel sounds, soft, no peritoneal signs. Absent: distended, tenderness - Extremities Exam Extremities exam: Present: warm, radial pulses palpable and symetrical. Absent : calf tenderness, cyanotic, pedal edema - Neurological Exam Neurological exam: Present: CN II-XII intact, oriented X3, no focal deficits. Absent: pronater drift, facial droop, speech deficit - Skin Skin exam: Present: dry, intact Internal Medicine: Result - Labs CBC & Chem 7: 01/12/17 07:02 01/12/17 07:02 Labs: Short CBC 01/12/17 Range/Units 07:02 WBC 6.5 (4.3-11.1) K/mcL Hgb 12.7 L (12.9-16.9) g/dL Hct 39.7 (37.5-50.1) % Plt Count 155 (140-400) K/mcL Neutrophils # 5.2 (1.6-8.9) K/mcL BMP 01/12/17 07:02 Sodium 139 Potassium 3.8 Chloride 108 Carbon Dioxide 24 BUN 16 Creatinine 1.03 Glucose 105 H Calcium 8.6 - ABG Interpretation ABG results: PT/INR, D-dimer PT 12.5 Seconds (9.4-12.1) H 01/11/17 12:20 Consult Discharge Plan - Plan Referrals: Dilan Claudio MD [Primary Care Provider] - 01/22/17 3:30 pm ()
[2017-01-13] MEDS: *HR* Heparin 5,000 UNIT/ML VIAL SQ SCH (05:18)
[2017-01-13 05:33] LABS: BUN/Creatinine Ratio 20 (6-26); Blood Urea Nitrogen 18 mg/dL (8-26); Calcium 8.6 mg/dL (8.6-10.8); Carbon Dioxide 23 mEq/L (19-29); Chloride 108 mEq/L (98-109); Glucose 108 mg/dL (70-99); Osmolality,Calculated 290 (280-300); Potassium 3.8 mEq/L (3.5-4.5); Sodium 139 mEq/L (136-145); eGFR For African Americans > 60 (> 60); eGFR For Non-African Americans > 60 (> 60)
[2017-01-13 05:36] LABS: Basophils % 0.2 %; Hematocrit 39.3 % (37.5-50.1); Hemoglobin 12.8 g/dL (12.9-16.9); Immature Granulocytes % 0.9 % (0-4); Lymphocytes # 0.5 K/mcL (0.6-4.6); Mean Corpuscular HGB Conc 32.6 g/dL (31.6-35.5); Mean Corpuscular Hemoglobin 29.4 pg (28.0-33.3); Mean Corpuscular Volume 90.1 fL (83.0-100.0); Mean Platelet Volume 11.2 fL (9.4-12.4); Monocytes # 0.8 K/mcL (0.0-1.3); Monocytes % 13.7 %; Platelet Count 162 K/mcL (140-400); Red Blood Count 4.36 M/mcL (4.19-5.50); Red Cell Distribution Width 13.3 % (11.5-14.5); Segmented Neutrophils % 77.2 %
[2017-01-13 06:10] LABS: Neutrophils # 4.3 K/mcL (1.6-8.9)
[2017-01-13 06:42] LABS: Platelet Estimate Normal (Normal)
[2017-01-13] MEDS: metroNIDAZOLE 500 MG TABLET PO SCH (08:16)
[2017-01-13] MEDS: Lactobacillus 1 EACH CAP.SPRINK PO SCH (08:17)
[2017-01-13 08:53] VITALS: BP 124/76
[2017-01-13] MEDS ORDERED: predniSONE 20 MG TABLET PO SCH (09:00)
--- NOTE | 2017-01-13 09:58 | Discharge Summary ---
Date of Encounter: 01/13/17 Time of Encounter: 09:00 - Discharge Diagnosis (1) DVT prophylaxis Priority: Secondary Status: Acute (2) Abdominal pain Priority: Primary Status: Acute Qualifiers: Abdominal location: unspecified location Qualified Code(s): R10.9 - Unspecified abdominal pain (3) Acute Crohn's disease Priority: Primary Status: Acute Qualifiers: Digestive disease complication type: other complication Qualified Code(s): K50.918 - Crohn's disease, unspecified, with other complication (4) C. difficile colitis Priority: Primary Status: Acute - Discharge Medications Prescriptions: metroNIDAZOLE [Flagyl] 500 mg PO TID #40 tablet predniSONE [PredniSONE] See Taper PO DAILY #21 tablet Home Medications: Adalimumab [Humira] 40 mg SQ Q2W 07/13/16 [History] Azathioprine [Imuran] 150 mg PO DAILY 07/13/16 [History] L. Acidophilus/Pectin, [place] [Acidophilus Probiotic Capsule] 1 cap PO DAILY [History] Multivitamin [Multi-Day Vitamins] 1 tab PO DAILY 01/10/17 [History] metroNIDAZOLE [Flagyl] 500 mg PO TID #40 tablet 01/13/17 [Rx] predniSONE [PredniSONE] See Taper PO DAILY #21 tablet 01/13/17 [Rx] Allergies/Adverse Reactions: Allergies infliximab [From Remicade] Adverse Reaction (Verified 10/28/16 10:05) Shakiness Procedures/tests Complete & Pending: Procedures Performed prior 72 hours Category Date Time Status US liver [US] Routine Exams 01/11/17 14:00 Completed - Notes to Outpatient Provider 1. C Diff positive, cont flagyl po 500mg tid for 14 days. 2. Steroid taper down, prednisone 60 mg by mouth daily 2, then 40 mg daily 3, then 20 mg daily 3, then 10 mg daily 3 3. Fatty liver found by CT and Ultrasound, please closely monitor. Date of admission: 01/10/17 12:33 Primary care physician: Dilan Claudio MD Discharging clinician: Marly Walker Anticipated date of discharge: 01/13/17 - Patient Status Disposition: Home, Self-Care Condition: Good Functional capacity at discharge: independent ambulation Overall status at discharge: patient is back to baseline - Discharge Instructions Follow Up With: Dilan Claudio MD [Primary Care Provider] - 01/22/17 3:30 pm () - Diet and Activity Activity: increase activity as tolerated Diet: advance to your usual diet Interval History: Mr. Dias is a 51 year old male patient with history of Crohn's disease who presented to the ER with complaints of abdominal pain along with nausea and vomiting. Symptoms began about 3 days back with abdominal pain that is cramping in nature. Patient has chronic cramping abdominal pain that usually spontaneously subsides. However this episode continued to get worse and so he came to the ER. Denies any fever chills or night sweats. Patient takes Humira and azathioprine for his Crohn's disease. He has not had any recent flareup. Since being diagnosed about 16 years back he has had only a couple of flareups prior to this current episode. Denies any melena or hematochezia. No dizziness or lightheadedness. No palpitations. Hospital course: Mr. Dias is a 51 year old male admitted for Crohn disease flare. He was treated with iv steroid, GI consult was called and saw patient. After treatment , patient's abdominal pain and diarrhea has improved. He tolerates regular diet well, steroid has switched to by mouth. Patient was found C. difficile positive, this is the first time C. difficile infection, Flagyl by mouth started , will finish 14 day course. Patient has no further diarrhea today, would discharge patient home on by mouth medication and follow-up with GI as outpatient. Patient also was found fatty liver, he was educated to avoid alcohol absolutely and closely monitor with PCP. I saw and examined the patient today. He is awake alert, pleasant. Denies abdominal pain, nausea, or diarrhea. Vitals are stable. Patient will discharge home with taper down steroid and by mouth Flagyl. He will follow-up with GI as outpatient. Patient is advised to go to ER immediately if he has a fever, abdominal pain, or recurrent diarrhea. - Time Spent with Patient Total time spent providing and/or coordinating discharge services: 25 min Less than 30 minutes - Constitutional Vitals: Temp Pulse Resp BP Pulse Ox 98.3 F 74 16 124/76 97 01/13/17 08:50 01/13/17 08:50 01/13/17 08:50 01/13/17 08:50 01/13/17 08:50 General appearance: Present: cooperative, A&O X 3, answers questions appropriately - Head Head exam: Present: atraumatic, normocephalic - Eye Eye exam: Present: PERRL, conjuntiva pink, sclera anicteric Pupils: Present: PERRL - Neck Neck exam general surgery: Present: supple, trachea midline. Absent: lymphadenopathy - Respiratory Respiratory exam: Present: CTAB. Absent: accessory muscle use, rales, rhonchi, wheezes - Cardiovascular Cardiovascular exam: Present: RRR, +S1, +S2. Absent: diastolic murmur, gallop, rubs, systolic murmur - GI/Abdominal GI/Abdominal exam: Present: normal bowel sounds, soft, no peritoneal signs. Absent: distended, tenderness - Extremities Exam Extremities exam: Present: warm, radial pulses palpable and symetrical. Absent : calf tenderness, cyanotic, pedal edema - Neurological Exam Neurological exam: Present: CN II-XII intact, oriented X3, no focal deficits. Absent: pronater drift, facial droop, speech deficit - Skin Skin exam: Present: dry, intact
[2017-01-13 11:50] LABS: AFP Tumor Marker Non-Pregnant 6 ng/mL (0-9); Alpha-1-Antitrypsin 159 mg/dL (90-200); Ceruloplasmin 27 mg/dL (17-54)
[2017-01-13 12:13] LABS: ANA IgG by ELISA DETECTED (None Detected); F-Actin (sm muscle) Ab IgG 11 Units (0-19)
[2017-01-15 07:31] LABS: Myeloperoxidase Ab 9 AU/mL (0-19); Serine Protease-3 Antibody 1 AU/mL (0-19)
== END 2017-01-13 11:00 | disposition home or self-care (01) | DRG 386 ==
LOC: 2ANU 06:07 → EMEROO 06:07 → 2ANU 11:39
PROVIDERS: ADMIT Internal Medicine; ATTEND Internal Medicine